=== PATIENT | male | born 1980 | race Caucasian/White ===

== ENCOUNTER 2024-12-17 19:32 | Outpatient (CLI) | payer BC, SELFPAY | END 2024-12-17 19:33 | disposition home or self-care (01) | LOC: NFLDREF 12-18 05:56 | PROVIDERS: Visit Provider Nurse Practitioner Family | DX: M54.9 Dorsalgia, unspecified (principal); R10.9 Unspecified abdominal pain | CPT/HCPCS: 87086 ==